=== PATIENT | female | born 2000 | race Caucasian/White ===

== ENCOUNTER 2018-01-12 14:29 | Emergency (ER) | payer BC, OTHER ==
[2018-01-12 15:04] VITALS: BP 125/62
--- NOTE | 2018-01-12 15:06 | UC ---
Throat Pain/Nasal Patric HPI - HPI Summary HPI Summary: 17 yo female presents with right ear pain and sore throat for the last 5 days. She tells me that she had these same symptoms about 3 weeks ago and was seen at another urgent care and placed on amoxicillin for an ear infection. She took this and felt better for the first 5-7 days, but her symptoms returned. She completed amoxicillin about 5 days ago. She also has a history of tonsil stones and would like a referral to ENT to discuss having them removed. Denies fever, chills, SOB, chest pain, abdominal pain, n/v. - History of Current Complaint Hx Obtained From: Patient Hx Last Menstrual Period: 12/28/17 Onset/Duration: Gradual Onset Severity: Mild Pain Intensity: 4 Pain Scale Used: 0-10 Numeric <Bay Cao - Last Filed: 01/12/18 15:22> <Logan Juarez - Last Filed: 01/12/18 16:39> - History of Current Complaint Chief Complaint: UCGeneralIllness Stated Complaint: SORE THROAT BILATERAL EARS Time Seen by Provider: 01/12/18 15:06 - Allergies/Home Medications Allergies/Adverse Reactions: Allergies Allergy/AdvReac Type Severity Reaction Status Date / Time No Known Allergies Allergy Verified 01/12/18 15:04 Home Medications: Home Medications Control Pill 1 tab BEDTIME 01/12/18 [History Confirmed 01/12/18] metFORMIN* [Glucophage 500 MG TAB *] 500 mg PO BEDTIME 01/12/18 [History Confirmed 01/12/18] PMH/Surg Hx/FS Hx/Imm Hx - Additional Past Medical History Additional PMH: PCOS - Surgical History Surgical History: None - Family History Known Family History: Positive: None - Social History Occupation: Student Lives: With Family Alcohol Use: None Substance Use Type: None Smoking Status (MU): Never Smoked Tobacco - Immunization History Vaccination Up to Date: Yes <Bay Cao - Last Filed: 01/12/18 15:22> Review of Systems Constitutional: Negative Skin: Negative Eyes: Negative ENT: Sore Throat, Ear Ache Respiratory: Negative Cardiovascular: Negative Gastrointestinal: Negative Neurological: Negative Psychological: Negative All Other Systems Reviewed And Are Negative: Yes <Bay Cao - Last Filed: 01/12/18 15:22> Physical Exam - Summary Physical Exam Summary: GENERAL: NAD. WDWN. No pain distress. SKIN: No rashes, sores, lesions, or open wounds. HEENT: Head: AT/NC Eyes: Conjunctiva clear without inflammation or discharge. Ears: Hearing grossly normal. RIGHT TM with mild erythema and bulging. No canal edema or drainage. Nose: Nasal mucosa pink and moist. NTTP maxillary and frontal sinus. Throat: Posterior oropharynx mild erythema and 2+ tonsillar enlargement. No exudates. Uvula midline. No hoarse voice or muffled voice. NECK: Supple. Nontender. No lymphadenopathy. CHEST: CTAB. No r/r/w. No accessory muscle use. Breathing comfortably and in no distress. CV: RRR. Without m/r/g. Pulses intact. Brisk cap refill. NEURO: Alert. CN II-XII grossly intact. PSYCH: Age appropriate behavior. Triage Information Reviewed: Yes Vital Signs: Initial Vital Signs Temp 98.2 F 01/12/18 14:58 Pulse 74 01/12/18 14:58 Resp 17 01/12/18 14:58 BP 125/62 01/12/18 14:58 Pulse Ox 100 01/12/18 14:58 <Bay Cao - Last Filed: 01/12/18 15:22> Vital Signs: Initial Vital Signs Temp 98.2 F 01/12/18 14:58 Pulse 74 01/12/18 14:58 Resp 17 01/12/18 14:58 BP 125/62 01/12/18 14:58 Pulse Ox 100 01/12/18 14:58 <Logan Juarez - Last Filed: 01/12/18 16:39> Throat Pain/Nasal Course/Dx - Course Course Of Treatment: Right otitis media. Tonsillitis. - Differential Dx/Diagnosis Provider Diagnoses: Right otitis media. Tonsillitis <Bay Cao Last Filed: 01/12/18 15:22> Discharge - Sign-Out/Discharge Documenting (check all that apply): Discharge/Admit/Transfer - Billing Disposition and Condition Condition: STABLE Disposition: Home <Bay Cao Last Filed: 01/12/18 15:22> - Billing Disposition and Condition Condition: STABLE Disposition: Home <Logan Juarez Last Filed: 01/12/18 16:39> - Discharge Plan Condition: Stable Disposition: HOME Prescriptions: Amoxicillin/Clavulanate TAB* [Augmentin TAB 875*] 875 mg PO BID #20 tab Patient Education Materials: Pharyngitis (ED) Referrals: Edna Rojas NP [Primary Care Provider] - Sunil Ferrara MD [Medical Doctor] - As Soon As Possible Additional Instructions: If you develop a fever, shortness of breath, chest pain, new or worsening symptoms - please call your PCP or go to the ED. 1) Please call ENT at the number below to schedule a follow up appointment Per institutional requirements, I have reviewed the chart, however, I was not consulted specifically or made aware of this patient by the above midlevel provider. I did not personally evaluate, interact with , or disposition this patient.
== END 2018-01-12 15:20 | disposition home or self-care (01) ==
LOC: UCCORT 14:29
DX: H66.91 Otitis media, unspecified, right ear (principal); J03.90 Acute tonsillitis, unspecified; Z79.84 Long term (current) use of oral hypoglycemic drugs
CPT/HCPCS: 99212; G0463